=== PATIENT | male | born 1970 | race Caucasian/White ===

== ENCOUNTER 2016-10-15 11:00 | Inpatient (IN) | payer OTHER ==
[~2016-10-15] VITALS: Ht 172.7 cm; Wt 67.6 kg
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
--- NOTE | ~2016-10-15 | HP ---
Unit #: [id number] #: [id number] Patient: KATIA REID [id number] [place] [address] [id number] MR#: [id number] NAME: KATIA REID. ROOM: 15 Age: 46 Sex: M Admission Date: 10/15/2016 : 1970 Attending Physician: Ernie Freedman M.D. Admitting Physician: Ernie Freedman M.D. HISTORY AND PHYSICAL HISTORY OF PRESENT ILLNESS Katia is a 46-year-old admitted to [address] [place] [address] with psychotic behavior. He reports auditory hallucinations. PAST MEDICAL HISTORY Nothing significant. PAST SURGICAL HISTORY Nothing reported. ALLERGIES No known drug allergies. SOCIAL HISTORY Smokes less than one-half pack per day. Denies alcohol and illicit drug use. FAMILY HISTORY Medically noncontributory. REVIEW OF SYSTEMS He does not answer all questions appropriately. There are no reports of nausea, vomiting or diarrhea. He has had no cough or increased temperature. CURRENT MEDICATIONS 1. Risperdal 2 mg q.h.s. 2. Cogentin 1 mg q.h.s. 3. Celexa 20 mg q.h.s. 4. Vistaril p.r.n. 5. Milk of Magnesia p.r.n. 6. Maalox p.r.n. 7. Tylenol p.r.n. 8. Nicotine patch 7 mg q day PHYSICAL EXAMINATION GENERAL: Alert, well-nourished, in no apparent distress. VITAL SIGNS: Blood pressure 115/66, heart rate 96, respirations 16, temperature 98.6. WEIGHT: 149 pounds. HEIGHT: 5'8". SKIN: Warm and dry without rash or lesion. HEENT: Normocephalic. TMs not viewed. Oral and nasal passages clear. Conjunctivae clear. Pupils equal, round and reactive to light and Unit #: [id number] #: [id number] Patient: KATIA REID accommodation. Extraocular movements intact. NECK: Supple without lymphadenopathy or thyromegaly. HEART: Regular rate and rhythm without murmur. LUNGS: Clear. ABDOMEN: Soft, nontender. : Not done. EXTREMITIES: No evidence of cyanosis, clubbing or edema. Moves all extremities without focal deficit. NEUROLOGICAL: Grossly within normal limits. Cranial Nerves: II: Visual wong are intact. III, IV AND : Extraocular movements are intact. Pupils are equal, round and reactive to light. V: Facial sensation is grossly normal. VII: Facial movements and expression are normal. VIII: Auditory acuity grossly intact. IX, X: Uvula is midline. Phonation is normal. XI: Patient shrugs shoulders and turns head normally. XII: Tongue protrudes in the midline. Sensory and Motor Function: Sensory and motor sensation is grossly normal. Motor: moves all extremities well. Coordination: Gait is normal. Deep Tendon Reflexes: Intact. IMPRESSION Psychiatric admission. RECOMMENDATIONS PSYCHIATRIC: Per psychiatrist. MEDICAL: I see no contraindications to participating in facility's activities. MEDICAL PROGNOSIS Good. MEDICAL CONDITION Stable. Dictated by... Winsome Garcia P.A.-C. for Pratibha Zuleta/placido TD: 10/15/2016 21:20 JOB #: [id number] Unit #: [id number] #: [id number] Patient: KATIA REID HISTORY AND PHYSICAL Page 1 of 1 X Winsome Garcia HISTORY AND PHYSICAL
--- NOTE | ~2016-10-15 | PN ---
Unit #: [id number] #: [id number] Patient: KATIA REID [id number] [facility] [address] [place] [address] [id number] MR#: [id number] NAME: KATIA REID. ROOM: 15 Age: 46 Sex: M Admission Date: 10/15/2016 : 1970 Attending Physician: Ernie Freedman M.D. Admitting Physician: Pratibha Tipton PROGRESS NOTES DATE OF SERVICE 10/17/2016 DISCUSSION Mr. Adler is a 46-year-old male seen on 10/17/2016. Patient interviewed, chart reviewed. Obtained information from nursing staff. Patient was compliant with medication. Mood sad, dysphoric, withdrawn, isolative, guarded. The patient's vital signs 97.8, 86, 16, 115/60. Complete review of systems unremarkable. MENTAL STATUS EXAMINATION General appearance, patient dressed casually. Attention span and concentration fair. Oriented to time, place and person. Mood and affect sad, depressed. Speech monotone. Thought process concrete. Patient reported having suicidal ideation, withdrawn, isolative, guarded. Recent and remote memory poor. Insight and judgement poor. DIAGNOSES 1. Psychosis NOS. 2. Schizophrenia chronic paranoid type. ASSESSMENT/PLAN Advise to continue with current medication and therapeutic protocol. If needed consider further adjustment of medication. Dictated by... Pratibha Tipton/placido TD: 10/17/2016 23:14 JOB #: [id number] Unit #: [id number] #: [id number] Patient: KATIA REID PROGRESS NOTES Page 1 of 1 X Ernie Freedman MD X PROGRESS NOTE
--- NOTE | ~2016-10-15 | DS ---
Unit #: [id number] #: [id number] Patient: KATIA REID [id number] [facility] [address] [place] [address] [id number] MR#: [id number] NAME: KATIA REID. ROOM: 15 Age: 46 Sex: M Admission Date: 10/15/2016 : 1970 Discharge Date: 10/20/2016 Attending Physician: Ernie Freedman M.D. DISCHARGE SUMMARY REASON FOR ADMISSION Depression. DIAGNOSTIC STUDIES LABORATORY DATA: Unremarkable. HOSPITAL COURSE The patient was admitted to inpatient unit on October 15 and discharged on 10/20/2016. The patient was treated with group therapy, individual therapy, and medication management. The patient was responsive to treatment, showed improvement. Subsequently, the patient was discharged with a plan to follow up in outpatient program. DISCHARGE MEDICATIONS 1. Celexa 20 mg daily for depression. 2. Cogentin 1 mg at bedtime for EPS symptom. 3. Vistaril 50 mg q. 6 hour p.r.n. for anxiety. DISCHARGE DIAGNOSES PSYCHIATRIC: Psychosis not otherwise specified, F29.0 Rule out schizophrenia, chronic, paranoid type. Schizoaffective disorder bipolar type. SECONDARY: Deferred. MEDICAL: None. STRESSORS: Psychosocial stressor. FOLLOWUP CARE The patient to follow up in outpatient clinic as per high school social science teacher. CONDITION ON DISCHARGE The patient pleasant, cooperative. Denied any psychotic symptom or any suicidal ideation. PROGNOSIS Guarded. DIET AND ACTIVITY As tolerated. Dictated by... Ernie Freedman M.D. Unit #: [id number] #: [id number] Patient: KATIA REID ELISSA/bzg TD: 10/23/2016 07:18 JOB #: [id number] DISCHARGE SUMMARY Page 1 of 1 X Ernie Freedman MD X DISCHARGE SUMMARY
--- NOTE | ~2016-10-15 | PN ---
Unit #: [id number] #: [id number] Patient: KATIA REID [id number] [facility] [address] [place] [address] [id number] MR#: [id number] NAME: KATIA REID ROOM: 15 Age: 46 Sex: M Admission Date: 10/15/2016 : 1970 Attending Physician: Ernie Freedman M.D. Admitting Physician: Pratibha Tipton PROGRESS NOTES DATE 10/18/2016 DISCUSSION Mr. Adler is a 46-year-old male. Patient interviewed. Chart reviewed. Obtained information from nursing staff. Patient was compliant, cooperative. Mood sad, dysphoric, flat affect, guarded. Patient still withdrawn, isolative, guarded. Diagnosed with schizophrenia, psychosis NOS. Patient vital signs 97.6, 70, 20, 102/64. Complete review of system unremarkable. MENTAL STATUS EXAMINATION General appearance, patient dressed casually. Attention span, concentration fair. Oriented in place and person. Mood and affect sad, dysphoric, flat affect, withdrawn, isolative. Recent and remote memory poor. Insight and judgement poor. DIAGNOSIS Schizoaffective disorder, bipolar type. ASSESSMENT/PLAN Advised to continue with current medication and therapeutic protocol. If needed, consider further adjustment of medication. Dictated by... Pratibha Tipton/bradly TD: 10/18/2016 18:06 JOB #: [id number] Unit #: [id number] #: [id number] Patient: KATIA REID PROGRESS NOTES Page 1 of 1 X Ernie Freedman MD X PROGRESS NOTE
--- NOTE | ~2016-10-15 | PN ---
Unit #: [id number] #: [id number] Patient: KATIA REID [id number] [facility] [address] [place] [address] [id number] I MR#: [id number] NAME: KATIA REID ROOM: P115 Age: 46 Sex: M Admission Date: 10/15/2016 : 1970 Attending Physician: Ernie Freedman M.D. Admitting Physician: Pratibha Tipton PROGRESS NOTES DATE OF SERVICE 10/19/2016 DISCUSSION Mr. Adler is a 46-year-old male seen on 10/19/2016. Patient interviewed, chart reviewed. Obtained information from nursing staff. Patient report mood is getting better. Compliant and cooperative. The patient's vital signs 98.0, 71, 14, 114/69. The patient continues to be withdrawn, isolative, flat affect, no side effects from medication. Compliant with medication. Complete review of systems unremarkable. MENTAL STATUS EXAMINATION General appearance, patient dressed casually. Attention span and concentration fair. Oriented to time, place and person. Mood and affect sad, dysphoric. Speech monotone. Thought process concrete. Patient denied any suicidal or homicidal ideation but withdrawn, isolative. Recent and remote memory poor. Insight and judgement poor. DIAGNOSES Schizoaffective disorder bipolar type. ASSESSMENT/PLAN Advise to continue with current medication and therapeutic protocol. If needed consider further adjustment of medication. Dictated by... Pratibha Tipton/placido TD: 10/20/2016 05:00 JOB #: [id number] Unit #: [id number] #: [id number] Patient: KATIA REID PROGRESS NOTES Page 1 of 1 X Ernie Freedman MD X PROGRESS NOTE
--- NOTE | ~2016-10-15 | PN ---
Unit #: [id number] #: [id number] Patient: KATIA REID [id number] [facility] [address] [place] [address] [id number] MR#: [id number] NAME: KATIA REID. ROOM: 15 Age: 46 Sex: M Admission Date: 10/15/2016 : 1970 Attending Physician: Ernie Freedman M.D. Admitting Physician: Pratibha Tipton PROGRESS NOTES DATE OF SERVICE 10/16/2016 DISCUSSION Mr. Adler is a 46-year-old male seen on 10/16/2016. Patient interviewed, chart reviewed. Obtained information from nursing staff. Patient continues to be withdrawal, isolative, guarded, flat affect. The patient reported hearing voices, isolative, guarded, suicidal ideation, nonspecific homicidal ideation. Complete review of systems unremarkable. MENTAL STATUS EXAMINATION General appearance, patient dressed casually. Attention span and concentration fair. Oriented to time, place and person. Mood and affect labile. Speech monotone. Thought process concrete. Patient denied any thoughts of harming self or others but guarded, paranoid. Thoughts of harming others and others, hallucination. Recent and remote memory poor. Insight and judgement poor. DIAGNOSES 1. Schizophrenia chronic paranoid type. 2. Rule out schizoaffective disorder bipolar type. ASSESSMENT/PLAN Advise to continue with current medication and therapeutic protocol. If needed consider further adjustment of medication. Dictated by... Pratibha Tipton/placido TD: 10/17/2016 02:34 JOB #: [id number] Unit #: [id number] #: [id number] Patient: KATIA REID PROGRESS NOTES Page 1 of 1 X Ernie Freedman MD PROGRESS NOTE
== END 2016-10-20 10:26 | disposition home or self-care (01) | DRG 885 ==
LOC: P1S 13:02
DX: F29 Unspecified psychosis not due to a substance or known physiological condition (principal); F25.0 Schizoaffective disorder, bipolar type; F17.210 Nicotine dependence, cigarettes, uncomplicated; Z81.3 Family history of other psychoactive substance abuse and dependence